=== PATIENT | female | born 1995 | race African-American/Black ===

== ENCOUNTER 2020-11-29 15:29 | Emergency (ER) | payer MEDICAID, OTHER ==
[~2020-11-29] VITALS: Ht 165.1 cm; Wt 65.0 kg
[2020-11-29] MEDS ORDERED: ONDANSETRON 4MG ODT PO ONE ×2 (16:00→21:18)
[2020-11-29] MEDS ORDERED: METOCLOPRAMIDE HCL 10MG/2ML VIAL IM ONE (21:00)
[2020-11-29 21:55] LABS: HEMATOCRIT. 37.6 % (36.0-48.0); HEMOGLOBIN. 12.2 g/dL (12.0-16.0); MEAN CORPUSCULAR HEMOGLOBIN 29.9 pg (28.0-32.0); MEAN CORPUSCULAR VOLUME 92.3 fL (81.0-99.0); MEAN PLATELET VOLUME 9.1 fl (7.4-10.4); PLATELET 224 x1000/uL (130-400); RED BLOOD CELL COUNT 4.07 mill/uL (4.2-5.4); RED CELL DISTRIBUTION WIDTH 13.9 % (11.6-14.6)
[2020-11-29] MEDS ORDERED: LACTATED RINGERS 1,000 ML IV SCH (22:00)
[2020-11-29 22:07] LABS: CHLORIDE 108 mEq/L (98-107)
[2020-11-29 22:10] LABS: HCG SCREEN NEGATIVE
[2020-11-29] MEDS ORDERED: ONDA4TAB11 PO (22:54)
[2020-11-29] MEDS ORDERED: HALOPERIDOL LACTATE 5MG/ML VIAL IM ONE (23:00)
[2020-11-29 23:13] LABS: *AMPHETAMINES SCREEN URINE NEGATIVE (NEGATIVE); *BARBITURATES SCREEN URINE NEGATIVE (NEGATIVE); *BENZODIAZEPINES SCREEN URINE NEGATIVE (NEGATIVE); *COCAINE SCREEN URINE NEGATIVE (NEGATIVE); METHADONE URINE SCREEN NEGATIVE (NEGATIVE); OPIATES URINE SCREEN NEGATIVE (NEGATIVE); PHENCYCLIDINE URINE SCREEN NEGATIVE (NEGATIVE)
[2020-11-29 23:16] LABS: CANNABINOID URINE SCREEN PRESUMTIVE POSITIVE (NEGATIVE)
[2020-11-29 23:27] LABS: PLATELET ESTIMATE NORMAL
[2020-11-29 23:45] VITALS: BP 107/54
== END 2020-11-29 23:45 | disposition home or self-care (01) ==
LOC: ER 15:29
DX: R10.9 Unspecified abdominal pain (principal); R11.2 Nausea with vomiting, unspecified
CPT/HCPCS: 36415; 80048; 80076; 80305; 80320; 83690; 84703; 85025; 96372; 99283; J1630; J2765; Q0162; G0480

== ENCOUNTER 2021-06-04 06:25 | Emergency (ER) | payer MEDICAID ==
[~2021-06-04] VITALS: Ht 165.1 cm; Wt 73.0 kg
[~2021-06-04 06:25] MED LIST: ONDA4TAB11 PO
[2021-06-04] MEDS ORDERED: SODIUM CHLORIDE 0.9% 1,000 ML IV ONE (06:45)
[2021-06-04] MEDS ORDERED: ONDANSETRON HCL 4MG/2ML INJ IV STA (06:45)
[2021-06-04] MEDS ORDERED: MORPHINE SULFATE 4 MG/ML CPJ (NOT FOR IM USE) IV STA (06:45)
[2021-06-04 07:11] LABS: BASOPHILS % 0.2 % (0.0-2.0); EOSINOPHILS % 0.4 % (0.0-5.0); HEMATOCRIT. 38.7 % (36.0-48.0); HEMOGLOBIN. 12.8 g/dL (12.0-16.0); LYMPHOCYTES % 9.3 % (20.0-50.0); MEAN CORPUSCULAR HEMOGLOBIN 30.4 pg (28.0-32.0); MEAN CORPUSCULAR VOLUME 91.5 fL (81.0-99.0); MEAN PLATELET VOLUME 8.5 fl (7.4-10.4); MONOCYTES % 3.5 % (2.0-8.0); NEUTROPHILS % 86.6 % (40.0-76.0); PLATELET 221 x1000/uL (130-400); RED BLOOD CELL COUNT 4.22 mill/uL (4.2-5.4); RED CELL DISTRIBUTION WIDTH 13.7 % (11.6-14.6)
[2021-06-04 07:17] LABS: CHLORIDE 109 mEq/L (98-107)
[2021-06-04 07:17] LABS: CLARITY URINE CLOUDY (CLEAR); COLOR URINE YELLOW (YELLOW); KETONES URINE 3+ (NEGATIVE); LEUKOCYTE ESTERASE URINE NEGATIVE (NEGATIVE); NITRITE URINE NEGATIVE (NEGATIVE); OCCULT BLOOD URINE 2+ (NEGATIVE); PROTEIN URINE NEGATIVE (NEGATIVE); SPECIFIC GRAVITY URINE 1.027 (1.005-1.030)
[2021-06-04 07:23] LABS: ETHANOL BLOOD < 10 mg/dL
[2021-06-04 07:34] LABS: *AMPHETAMINES SCREEN URINE NEGATIVE (NEGATIVE); *BARBITURATES SCREEN URINE NEGATIVE (NEGATIVE); *BENZODIAZEPINES SCREEN URINE NEGATIVE (NEGATIVE); *COCAINE SCREEN URINE NEGATIVE (NEGATIVE); METHADONE URINE SCREEN NEGATIVE (NEGATIVE); OPIATES URINE SCREEN NEGATIVE (NEGATIVE)
[2021-06-04 07:35] LABS: PHENCYCLIDINE URINE SCREEN NEGATIVE (NEGATIVE)
[2021-06-04 07:54] LABS: CANNABINOID URINE SCREEN PRESUMTIVE POSITIVE (NEGATIVE)
[2021-06-04] MEDS ORDERED: IOHEXOL-300 100 ML BOTTLE ONE (10:07)
[2021-06-04 10:34] VITALS: BP 116/73
[2021-06-04] MEDS ORDERED: NITR100C MT (10:36)
[2021-06-04] MEDS ORDERED: IBUP-2029 MT (10:38)
== END 2021-06-04 11:03 | disposition home or self-care (01) ==
LOC: ER 06:25
DX: R10.9 Unspecified abdominal pain (principal); N39.0 Urinary tract infection, site not specified
CPT/HCPCS: 36415; 74177; 80053; 80305; 80320; 81003; 81025; 83690; 85025; 93005; 96361; 96374; 96375; 99285; J2270; J2405; J7030; Q9967; Z7610; G0480

== ENCOUNTER 2022-06-06 03:37 | Emergency (ER) | payer MEDICAID ==
[~2022-06-06] VITALS: Ht 165.1 cm; Wt 82.0 kg
[~2022-06-06 03:37] MED LIST changes: +IBUP-2029 MT; +NITR100C MT
[2022-06-06] MEDS ORDERED: MORPHINE SULFATE 4 MG/ML CPJ (NOT FOR IM USE) IV STA (05:56)
[2022-06-06] MEDS ORDERED: ONDANSETRON HCL 4MG/2ML INJ IV STA (05:56)
[2022-06-06] MEDS ORDERED: SODIUM CHLORIDE 0.9% 1,000 ML IV ONE (06:00)
[2022-06-06 06:25] LABS: HEMATOCRIT. 38.9 % (36.0-48.0); HEMOGLOBIN. 13.1 g/dL (12.0-16.0); MEAN CORPUSCULAR HEMOGLOBIN 30.5 pg (28.0-32.0); MEAN CORPUSCULAR VOLUME 90.8 fL (81.0-99.0); PLATELET 232 x1000/uL (130-400); RED BLOOD CELL COUNT 4.28 mill/uL (4.2-5.4); RED CELL DISTRIBUTION WIDTH 14.3 % (11.6-14.6)
[2022-06-06 06:32] LABS: CLARITY URINE CLOUDY (CLEAR); COLOR URINE YELLOW (YELLOW); KETONES URINE 3+ (NEGATIVE); LEUKOCYTE ESTERASE URINE TRACE (NEGATIVE); NITRITE URINE NEGATIVE (NEGATIVE); OCCULT BLOOD URINE NEGATIVE (NEGATIVE); PROTEIN URINE 1+ (NEGATIVE); SPECIFIC GRAVITY URINE 1.027 (1.005-1.030)
[2022-06-06 06:33] LABS: CHLORIDE 105 mEq/L (98-107)
[2022-06-06 06:37] LABS: HCG SCREEN NEGATIVE
[2022-06-06 06:41] LABS: PLATELET ESTIMATE NORMAL
[2022-06-06] MEDS ORDERED: KETOROLAC 15MG/ML VIAL IV ONE (08:15)
[2022-06-06 09:30] VITALS: BP 116/40
== END 2022-06-06 09:30 | disposition left against medical advice (07) ==
LOC: ER 03:37
DX: R10.9 Unspecified abdominal pain (principal)
CPT/HCPCS: 36415; 74176; 80053; 81003; 83605; 84703; 85025; 93005; 96361; 96374; 96375; 99285; J1885; J2270; J2405; J7030